=== PATIENT | female | born 1945 | race Caucasian/White ===

== ENCOUNTER 2016-10-12 21:06 | Emergency (ER) | payer OTHER ==
[2016-10-12 21:27] VITALS: BMI 28.0
[2016-10-12 21:39] VITALS: TEMP 97.7
--- NOTE | 2016-10-12 21:54 | PDOC ---
History of Present Illness - General Chief Complaint: Nausea Stated Complaint: ANXIETY Time Seen by Provider: 10/12/16 21:29 - History of Present Illness Initial Comments: 10/12/16 22:12 The patient is a 71 year old female with a significant past medical history of oral cancer and obturator for palate protection who presents to the emergency department by ambulance after she woke up from a nap feeling like she was going to with choking this afternoon. The patient denies chest pain, shortness of breath, headache and dizziness. Denies fever, chills, nausea, vomit, diarrhea and constipation. Denies dysuria, frequency, urgency and hematuria. Allergies: NKDA Past surgical history: Lung and palate surgery many years ago Social history: Denies PMD -Yolis Lloyd 10/12/16 22:21 Past History - Past Medical History Allergies/Adverse Reactions: Allergies Allergy/AdvReac Type Severity Reaction Status Date / Time No Known Allergies Allergy Verified 10/12/16 21:27 Home Medications: Ambulatory Orders Acetaminophen W/ Codeine #3 [Tylenol # 3 -] 1 - 2 tab PO Q6H PRN 10/12/16 Alprazolam [Xanax] 0.5 mg PO QID PRN 10/12/16 Metoprolol Succinate [Toprol Xl -] 25 mg PO DAILY 10/12/16 - Psycho/Social/Smoking Cessation Hx Suicidal Ideation: No Smoking History: Never smoked Have you smoked in the past 12 months: No Information on smoking cessation initiated: No Hx Alcohol Use: No Drug/Substance Use Hx: No Review of Systems - Review of Systems Comments:: 10/12/16 22:16 GENERAL/CONSTITUTIONAL: +Anxiety. No fever or chills. No weakness. HEAD, EYES, EARS, NOSE AND THROAT: No change in vision. No ear pain or discharge. No sore throat. CARDIOVASCULAR: No chest pain or shortness of breath RESPIRATORY: +Some gagging this afternoon. No cough, wheezing, or hemoptysis. GASTROINTESTINAL: No nausea, vomiting, diarrhea or constipation. GENITOURINARY: No dysuria, frequency, or change in urination. MUSCULOSKELETAL: No joint or muscle swelling or pain. No neck or back pain. SKIN: No rash NEUROLOGIC: No headache, vertigo, loss of consciousness, or change in strength/ sensation. ENDOCRINE: No increased thirst. No abnormal weight change HEMATOLOGIC/LYMPHATIC: No anemia, easy bleeding, or history of blood clots. ALLERGIC/IMMUNOLOGIC: No hives or skin allergy. *Physical Exam - Vital Signs Last Vital Signs Temp Pulse Resp BP Pulse Ox 155/76 98 10/12/16 21:14 10/12/16 21:14 - Physical Exam Comments: 10/12/16 22:17 Unable to perform Medical Decision Making - Medical Decision Making 10/12/16 22:17 Discharging patient per request. In no acute distress. Patient states she was napping when she awoke with feelings of dread like she was going to . Also notes that her obturator is not fitting well lately. Suspect device slipped while sleeping and triggered gag reflex. Advised to not sleep with it until able to F/U with provider. No suspicious of PE, ACS, or other pathology. Asymptomatic presentation other than anxiety reported. *DC/Admit/Observation/Transfer Diagnosis at time of Disposition: Shortness of breath - Discharge Dispostion Disposition: HOME - Referrals Referrals: Bubba Kay MD [Staff Physician] - - Patient Instructions Additional Instructions: Please do not sleep with Obturator in until you have the chance to follow-up with ENT for sizing. - Attestations Physician Attestion: 10/12/16 22:20 I, Dr. Branden Thomas, attest that this document has been prepared under my direction and personally reviewed by me in its entirety. I further attest, that it accurately reflects all work, treatment, procedures and medical decision -making performed by me.
[2016-10-12 22:29] VITALS: BP 150/74; PULSE 82
--- NOTE | 2016-10-12 23:48 | PDOC ---
Attending Attestation - Resident Resident Name: Jhony Thomasorn - ED Attending Attestation I have performed the following: I have examined & evaluated the patient, The case was reviewed & discussed with the resident, I agree w/resident's findings & plan, Exceptions are as noted - HPI HPI: 10/12/16 23:46 71-year-old female with history of oral cancer with a fitted obturator presents the ER with an episode of dyspnea that occurred after the obturator became loose. Symptoms resolved immediately upon sitting up. Patient denies chest pain/ abdominal pain/nausea/vomiting/fever/chills. - Physicial Exam PE: 10/12/16 23:47 Patient is awake and alert, well-appearing, in no distress. Lungs are noted to be clear to auscultation; rrr, abdomen soft, nontender, nondistended; there is no lower extremity edema. - Medical Decision Making 10/12/16 23:47 Patient 71-year-old female with history of oral malignancy with the fitted obturators presents with an episode of difficulty breathing that has now resolved. I suspect a localized obstruction due to ill fitting obturator. No acute issues are present currently. Patient's been advised to discontinue the wearing of the obturator until she has been refitted. Will discharge.
== END 2016-10-12 22:39 | disposition home or self-care (01) ==
LOC: JER 21:06
DX: T85.628A Displacement of other specified internal prosthetic devices, implants and grafts, initial encounter (principal); R06.02 Shortness of breath; Z85.818 Personal history of malignant neoplasm of other sites of lip, oral cavity, and pharynx
CPT/HCPCS: 99282-25